=== PATIENT | female | born 1995 | race Caucasian/White ===

== ENCOUNTER → 2023-10-22 10:22 | Outpatient (REF) | payer OTHER, SELFPAY | LOC: RAD 10:22 | PROVIDERS: ATTENDING PHYSICIAN Obstetrics & Gynecology; FAMILY PHYSICIAN Family Medicine | DX: O26.851 Spotting complicating pregnancy, first trimester (principal) | CPT/HCPCS: 76801; 76817 ==

== ENCOUNTER → 2023-11-29 06:49 | Outpatient (REF) | payer OTHER, SELFPAY | LOC: PNTC 06:49 | PROVIDERS: ATTENDING PHYSICIAN Obstetrics & Gynecology | DX: O99.210 Obesity complicating pregnancy, unspecified trimester (principal); Z36.0 Encounter for antenatal screening for chromosomal anomalies; Z36.82 Encounter for antenatal screening for nuchal translucency | CPT/HCPCS: 76801; 76813 ==

== ENCOUNTER → 2024-01-01 16:34 | Outpatient (REF) | payer OTHER, SELFPAY | LOC: PNTC 16:34 | PROVIDERS: ATTENDING PHYSICIAN Obstetrics & Gynecology | DX: O99.210 Obesity complicating pregnancy, unspecified trimester (principal) | CPT/HCPCS: 76805 ==

== ENCOUNTER 2024-01-21 11:33 | Emergency (ER) | payer OTHER, SELFPAY ==
[2024-01-21 11:56] VITALS: BMI 37.4
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
[2024-01-21 12:17] LABS: Hematocrit 32.4 % (37.0-47.0); Hemoglobin 11.4 g/dL (12.0-16.0)
[2024-01-21 12:51] VITALS: BP 116/69
== END 2024-01-21 13:12 | disposition home or self-care (01) ==
LOC: EMR 11:33
PROVIDERS: EMERGENCY PHYSICIAN Emergency Medicine; FAMILY PHYSICIAN Family Medicine
DX: S46.912A Strain of unspecified muscle, fascia and tendon at shoulder and upper arm level, left arm, initial encounter (principal); S70.02XA Contusion of left hip, initial encounter; S80.12XA Contusion of left lower leg, initial encounter; V86.69XA Passenger of other special all-terrain or other off-road motor vehicle injured in nontraffic accident, initial encounter; Z33.1 Pregnant state, incidental
CPT/HCPCS: 99283; 85014; 85018

== ENCOUNTER → 2024-01-24 15:59 | Outpatient (REF) | payer OTHER, SELFPAY | LOC: PNTC 15:59 | PROVIDERS: ATTENDING PHYSICIAN Obstetrics & Gynecology | DX: O99.210 Obesity complicating pregnancy, unspecified trimester (principal) | CPT/HCPCS: 76811 ==

== ENCOUNTER → 2024-03-06 16:27 | Outpatient (REF) | payer OTHER, SELFPAY | LOC: PNTC 16:27 | PROVIDERS: ATTENDING PHYSICIAN Obstetrics & Gynecology | DX: O99.210 Obesity complicating pregnancy, unspecified trimester (principal) | CPT/HCPCS: 76816 ==

== ENCOUNTER → 2024-03-12 16:56 | Outpatient (REF) | payer OTHER, SELFPAY | LOC: PNTC 16:56 | PROVIDERS: ATTENDING PHYSICIAN Student in an Organized Health Care Education/Training Program | DX: O24.419 Gestational diabetes mellitus in pregnancy, unspecified control (principal) | CPT/HCPCS: 76815 ==

== ENCOUNTER → 2024-03-14 13:14 | Outpatient (REF) | payer OTHER, SELFPAY ==
--- NOTE | 2024-03-14 13:41 | PN.DIAED06 ---
Meal Plan - Gestational
- Breakfast
Gestational Diabetes Meal Plan Name: 1800 calories
Breakfast - Total Carbohydrate (grams): 30
Breakfast - Starch Carbohydrate: 1
Breakfast - Fruit Carbohydrate: 0
Breakfast - Milk Carbohydrate: 1
Breakfast - Nonstarchy Vegetables: Yes
Breakfast - Meat/Protein: 1
Breakfast - Fat: 2
- Morning Snack
Morning Snack - Total Carbohydrate (grams): 30
Morning Snack - Starch Carbohydrate: 1
Morning Snack - Fruit Carbohydrate: 0
Morning Snack - Milk Carbohydrate: 1
Morning Snack - Nonstarchy Vegetables: Yes
Morning Snack - Meat/Protein: 0.5
Morning Snack - Fat: 0
- Lunch
Lunch - Total Carbohydrate (grams): 45
Lunch - Starch Carbohydrate: 2
Lunch - Fruit Carbohydrate: 1
Lunch - Milk Carbohydrate: 0
Lunch - Nonstarchy Vegetables: Yes
Lunch - Meat/Protein: 2
Lunch - Fat: 1
- Afternoon Snack
Afternoon Snack - Total Carbohydrate (grams): 30
Afternoon Snack - Starch Carbohydrate: 1
Afternoon Snack - Fruit Carbohydrate: 1
Afternoon Snack - Milk Carbohydrate: 0
Afternoon Snack - Nonstarchy Vegetables: Yes
Afternoon Snack - Meat/Protein: 1
Afternoon Snack - Fat: 0
- Dinner
Dinner - Total Carbohydrate (grams): 45
Dinner - Starch Carbohydrate: 2
Dinner - Fruit Carbohydrate: 0
Dinner - Milk Carbohydrate: 1
Dinner - Nonstarchy Vegetables: Yes
Dinner - Meat/Protein: 2
Dinner - Fat: 2
- Evening Snack
Evening Snack - Total Carbohydrate (grams): 30
Evening Snack - Starch Carbohydrate: 1
Evening Snack - Fruit Carbohydrate: 0
Evening Snack - Milk Carbohydrate: 1
Evening Snack - Nonstarchy Vegetables: Yes
Evening Snack - Meat/Protein: 1
Evening Snack - Fat: 1
--- NOTE | 2024-03-14 16:49 | PN.DE ---
Diabetes Education
- -
Met with Ms. Wolf today, currently at 27 weeks of gestation, here today for medical nutrition therapy.
Explained glucose metabolism in body and what occurs during to cause increase blood sugar. Discussed importance of keeping BS well controlled to avoid complications to the baby during and after (macrosomia, hypoglycemia).
Explained to Oanh that she is at increased risk of developing T2DM in the future.
Provided with and instructions given on Contour Next glucometer, instructions on proper testing technique, testing sites and testing pattern given. She is aware to test FBS and 2 hr pp each meal. Expected results for FBS <95 mg/dl and 2 hr pp <120
mg/dl. She is aware if testing 1 hr pp, result should be <140 mg/dl. Noted for blood sugar of 92, 2 hrs after lunch. Log sheet provided for her to record results, she will send a 4 day meal log with all her FBG and 2hr Post prandial glucose numbers
to this office for review.
In addition, she will send all her glucose readings to Tanya at [facility] every Sunday.
Discussed macronutrients, provided with 1800 zackery GDM meal plan, she has a good understanding of healthy nutrition but states that she struggles with sweets and baked good as she loves to bake with her Da. She also states she does not eat enough
protein and thinks she may be under eating, although she is 215 lbs at 5'3'.
Oanh has been educated on how to read a nutritional fact label and look at total CHO in relation to serving size. No fruit or fruit juice until noontime. Provided with handout on snacks as well as 'Choose Your Foods' booklet. Encouraged exercise
and increased physical activity during and encouraged her to reach out should she have any questions or require insulin as her progresses and she verbalized understanding.
== END ==
LOC: DES 13:14
PROVIDERS: ATTENDING PHYSICIAN Student in an Organized Health Care Education/Training Program
DX: O24.419 Gestational diabetes mellitus in pregnancy, unspecified control (principal)
CPT/HCPCS: 99078

== ENCOUNTER → 2024-04-17 16:25 | Outpatient (REF) | payer OTHER, SELFPAY | LOC: PNTC 16:25 | PROVIDERS: ATTENDING PHYSICIAN Obstetrics & Gynecology | DX: O99.210 Obesity complicating pregnancy, unspecified trimester (principal) | CPT/HCPCS: 76816 ==

== ENCOUNTER → 2024-04-28 11:26 | Outpatient (REF) | payer OTHER, SELFPAY | LOC: PNTC 11:26 | PROVIDERS: ATTENDING PHYSICIAN Obstetrics & Gynecology | DX: O24.419 Gestational diabetes mellitus in pregnancy, unspecified control (principal) | CPT/HCPCS: 59025; 76815 ==

== ENCOUNTER → 2024-05-05 16:59 | Outpatient (REF) | payer OTHER, SELFPAY | LOC: PNTC 16:59 | PROVIDERS: ATTENDING PHYSICIAN Obstetrics & Gynecology | DX: O24.410 Gestational diabetes mellitus in pregnancy, diet controlled (principal) | CPT/HCPCS: 59025; 76815 ==

== ENCOUNTER → 2024-05-12 16:56 | Outpatient (REF) | payer OTHER, SELFPAY | LOC: PNTC 16:56 | PROVIDERS: ATTENDING PHYSICIAN Obstetrics & Gynecology | DX: O99.210 Obesity complicating pregnancy, unspecified trimester (principal); O24.419 Gestational diabetes mellitus in pregnancy, unspecified control | CPT/HCPCS: 59025 ==

== ENCOUNTER → 2024-05-19 11:34 | Outpatient (REF) | payer OTHER, SELFPAY | LOC: PNTC 11:34 | PROVIDERS: ATTENDING PHYSICIAN Obstetrics & Gynecology | DX: O24.419 Gestational diabetes mellitus in pregnancy, unspecified control (principal) | CPT/HCPCS: 59025; 76815 ==

== ENCOUNTER 2024-05-28 12:34 | Emergency (ER) | payer OTHER, SELFPAY ==
[2024-05-28 12:51] VITALS: BP 123/86
[2024-05-28 13:18] LABS: % Basophils 0.3 % (0-2); % Eosinophils 0.2 % (0-6); % Immature Granulocytes 1.1 % (0-0.5); % Lymphocytes 15.8 % (20.5-51.1); % Monocytes 5.4 % (1.7-9.3); % Neutrophils 77.2 % (42.2-75.2); Absolute Immature Granulocytes 0.1 10^3/uL (0-0.05); Absolute Lymphocytes 1.6 10^3/uL (1.2-3.4); Absolute Monocytes 0.5 10^3/uL (0.1-0.6); Absolute Neutrophils 7.7 10^3/uL (1.4-6.5); Hematocrit 35.6 % (37.0-47.0); Mean Corp Hgb Conc. 33.7 g/dL (33.0-37.0); Mean Corpuscular Hgb 26.7 pg (27.0-31.0); Mean Corpuscular Volume 79.3 fL (81.0-99.0); Nucleated Red Blood Cells % 0 %; Platelet Count 186 10^3/uL (130-400); Red Blood Cell Count 4.49 10^6/uL (4.20-5.40); Red Cell Dist. Width 13.8 % (11.5-14.5); White Blood Cell Count 9.9 10^3/uL (4.8-10.8)
[2024-05-28 13:39] LABS: ALT (SGPT) 14 U/L (0-35); AST (SGOT) 22 U/L (14-36); Albumin 3.7 g/dl (3.5-5.0); Alkaline Phosphatase 166 U/L (38-126); Blood Urea Nitrogen 7 mg/dl (7-17); Calcium 9.2 mg/dl (8.4-10.2); Carbon Dioxide 21 mmol/L (22-30); Chloride 103 mmol/L (98-107); Glucose 104 mg/dl (70-99); Potassium 4.1 mmol/L (3.5-5.1); Sodium 133 mmol/L (135-145); Total Bilirubin 0.2 mg/dl (0.2-1.3); Total Protein 6.2 g/dl (6.3-8.2); eGFR > 60.00
[2024-05-28 15:22] VITALS: BP 117/96
[2024-05-28 19:51] VITALS: BP 143/66
--- NOTE | 2024-05-28 20:12 | ED.GENMED ---
History of Present Illness
<ÓSCAR Junior - Last Filed: 05/28/24 20:56>
General
Chief Complaint: Breathing Problem
Source: patient
Time Seen by Provider: 05/28/24 19:49
History of Present Illness
History of Present Illness:
This is a 29 y/o female with gestational diabetes who is 38 wk () and presents to the emergency department with SOB and palpitations. She called her OB office this morning (Dr. Mojica) and spoke with a nurse who recommended she went to
the ER for evaluation. She admits to 1 episode of SOB with palpitations that lasted a few seconds this morning while at work sitting at her desk. She describes the SOB as 'feels like I'm not getting a full deep breath.' She admits to occasional
episodes of 'heart flutter' while lying on her left side at night since being . She admits to heart palpitations since childhood that were evaluated by a Bathhouse Attendant years ago and no further intervention was needed. Denies fever/chills,
cough, chest pain, vomiting, diarrhea, LE edema, headache, vaginal bleeding/discharge, dizziness.
Past History
<ÓSCAR Junior - Last Filed: 05/28/24 20:56>
Past History
ED Past Medical History: None
Social History
Tobacco: Non-smoker
Alcohol: None
Drug: None
Personal: Single
Living: with family
Phy Exam
<ÓSCAR Junior - Last Filed: 05/28/24 20:56>
Physical Exam
Physical Exam:
Skin: [place], soft, well-hydrated, turgor with instant recoil
Resp: muscle and respiratory effort symmetric without use of accessory muscles; vesicular breath sounds without adventitious sounds; even, quiet breathing
Heart: No lifts or heaves visible; tachycardic rate and regular rhythm; No murmurs, rubs or gallops
PV: radial, dorsalis pedis and posterior tibial pulses all intact bilaterally; no edema or varicosities; no tenderness to palpation of LE
Neuro: AAO x3
General Physical Exam
General Presentation: well appearing
Course
<Indy Márquez, [facility] - Last Filed: 05/28/24 20:56>
Orders/Labs/Results
Orders:
Orders
05/28/24 12:35
Electrocardiogram (*1) Urgent
Reason for Study: Palpitations
EKG- Treatment ONCE
05/28/24 12:50
CMP [Comprehensive Metabolic Panel] Urgent
Complete Blood Count/With Diff Urgent
Abnormal Lab Results
05/28/24
12:50
Hct 35.6 L %
(37.0-47.0)
MCV 79.3 L fL
(81.0-99.0)
MCH 26.7 L pg
(27.0-31.0)
MPV 11.0 H fL
(7.4-10.4)
Abs Immat Gran (auto) 0.1 H 10^3/uL
(0-0.05)
Absolute Neuts (auto) 7.7 H 10^3/uL
(1.4-6.5)
Immature Gran % 1.1 H %
(0-0.5)
Neutrophils % 77.2 H %
(42.2-75.2)
Lymphocytes % 15.8 L %
(20.5-51.1)
Sodium 133 L mmol/L
(135-145)
Carbon Dioxide 21 L mmol/L
(22-30)
Glucose 104 H mg/dl
(70-99)
Alkaline Phosphatase 166 H U/L
(38-126)
Total Protein 6.2 L g/dl
(6.3-8.2)
05/28/24 12:50
05/28/24 12:50
Vital Signs
Initial and Last Documented VS:
Initial Vital Signs
Temp Pulse Resp BP Pulse Ox
98.5 F 99 18 123/86 98
05/28/24 12:51 05/28/24 12:51 05/28/24 12:51 05/28/24 12:51 05/28/24 12:51
Last Documented Vital Signs
Temp Pulse Resp BP Pulse Ox
98.5 F 99 16 143/66 99
05/28/24 12:51 05/28/24 19:51 05/28/24 19:51 05/28/24 19:51 05/28/24 19:51
<Tyrone Painter, DO - Last Filed: 05/28/24 23:06>
Orders/Labs/Results
Orders:
Orders
05/28/24 12:35
Electrocardiogram (*1) Urgent
Reason for Study: Palpitations
EKG- Treatment ONCE
05/28/24 12:50
CMP [Comprehensive Metabolic Panel] Urgent
Complete Blood Count/With Diff Urgent
Abnormal Lab Results
05/28/24
12:50
Hct 35.6 L %
(37.0-47.0)
MCV 79.3 L fL
(81.0-99.0)
MCH 26.7 L pg
(27.0-31.0)
MPV 11.0 H fL
(7.4-10.4)
Abs Immat Gran (auto) 0.1 H 10^3/uL
(0-0.05)
Absolute Neuts (auto) 7.7 H 10^3/uL
(1.4-6.5)
Immature Gran % 1.1 H %
(0-0.5)
Neutrophils % 77.2 H %
(42.2-75.2)
Lymphocytes % 15.8 L %
(20.5-51.1)
Sodium 133 L mmol/L
(135-145)
Carbon Dioxide 21 L mmol/L
(22-30)
Glucose 104 H mg/dl
(70-99)
Alkaline Phosphatase 166 H U/L
(38-126)
Total Protein 6.2 L g/dl
(6.3-8.2)
05/28/24 12:50
05/28/24 12:50
Vital Signs
Initial and Last Documented VS:
Initial Vital Signs
Temp Pulse Resp BP Pulse Ox
98.5 F 99 18 123/86 98
05/28/24 12:51 05/28/24 12:51 05/28/24 12:51 05/28/24 12:51 05/28/24 12:51
Last Documented Vital Signs
Temp Pulse Resp BP Pulse Ox
98.5 F 99 16 143/66 99
05/28/24 12:51 05/28/24 19:51 05/28/24 19:51 05/28/24 19:51 05/28/24 19:51
<ÓSCAR Junior - Last Filed: 05/28/24 20:56>
MDM/Problems Addressed
MDM/Problems Addressed:
This is a 29 y/o female who is 38 wk and reports to the ER with SOB and palpitation. Pt had an episode of SOB and palpitations this morning that lasted seconds and has not reoccurred since. Sinus tachycardia on EKG. Blood pressure
143/66mmHg. She appears well on exam and denies any vaginal bleeding/discharge, cough, hemoptysis, chest pain. Will reach out to OB to determine their preference in plan.
<ÓSCAR Junior - Last Filed: 05/28/24 20:56>
*Critical Care Note
Total Time (30-74mins, 75-104mins- exclusive of procedures): Not Applicable
<Tyrone Painter DO - Last Filed: 05/28/24 23:06>
*Pulse Oximetry
Patient hypoxic: no
*EKG
Interpreted by ED Provider?: Yes
EKG Intrepretation Date: 05/28/24
EKG Intrepretation Time: 12:40
Interpretation: abnormal
Comparison EKG: no comparison EKG present
Heart Rate: 102
Rate: tachycardiac
Rhythm: sinus tachycardia
[place]: normal axis
Interval: normal interval
QRS Pattern: normal QRS
Ischemia: no ischemia
*Steam Power Plant Operator Interpretation
Rate: Steam Power Plant Operator- N/A
<Tyrone Painter DO - Last Filed: 05/28/24 23:06>
Patient Management
Social determinants of health affecting care: Living situation and Strong social support
Discussion with other providers: Metal Template Maker (OB-Dr. Reid)
Escalation/DeEscalation of care consider admission/obs:
transfer to L and D
ED Attending Note
<ÓSCAR Junior - Last Filed: 05/28/24 20:56>
-
Portions of this chart may have been created with voice recognition software.� Occasional wrong word or��sound alike� substitutions may have occurred due to the inherent limitations of voice recognition software.
<Tyrone Painter DO - Last Filed: 05/28/24 23:06>
ED Attending Note
Patient seen and examined by attending physician: Yes
I performed a history and physical exam of patient and discussed management with resident, I reviewed resident's note and agree with documented findings and plan of care.: Yes
ED Attending Note:
I reviewed and agree with history and treatment plan by Indy Márquez. My exam revealed no acute distress, clear lungs, gravid uterus. No shortness of breath or chest pain at this time. Doubt PE. Given elevated blood pressure and discussed
with Dr. Reid, will transfer to labor and delivery.
Discharge Plan
Departure
Patient Disposition: LDRP
Date of Disposition: 05/28/24
Time of Disposition: 20:52
Admit to doctor: [facility]
Presentation/result/management discussed w/ accepting MD/DO: OB
Patient with high blood pressure during this ER visit?: Yes
Condition: Good
Discharge Problem:
Palpitations, related condition in third trimester, Hypertension affecting in third trimester
Prescriptions:
No Action
(DME) Contour Next Test Strips Strip
Qty: 130 0RF
Rx Instructions:
Pt Testing 4 times a day
(DME) lancets [Microlet Lancet] Misc
Qty: 130 0RF
Rx Instructions:
Pt testing 4 times a day
Vitamin Tablet
1 tab PO DAILY
aspirin 81 mg Capsule
81 mg PO DAILY
Referrals:
Dakota Bonilla MD [Family Provider] -
Interventions
Interventions:
*Risk Screen - Suicide Last Done: 05/28/24 12:51
*General Assessment Last Done: 05/28/24 12:51
*Neglect/Abuse Screening Last Done: 05/28/24 12:51
*Nursing Disposition Last Done: 05/28/24 21:02
ED- Cardiac Assessment Last Done: 05/28/24 21:02
ED- Pulmonary Assessment Last Done: 05/28/24 21:02
Discharge Date and Time
Discharge Date/Time: 05/28/24 21:03
Print Language: LATVIAN
== END 2024-05-28 21:03 | disposition home or self-care (01) ==
LOC: EMR 12:34
PROVIDERS: Emergency Medicine; EMERGENCY PHYSICIAN Emergency Medicine; FAMILY PHYSICIAN Family Medicine
DX: O26.893 Other specified pregnancy related conditions, third trimester (principal); R00.2 Palpitations; O10.913 Unspecified pre-existing hypertension complicating pregnancy, third trimester; O24.419 Gestational diabetes mellitus in pregnancy, unspecified control; Z3A.38 38 weeks gestation of pregnancy
CPT/HCPCS: 99284; 80053; 85025; 93005

== ENCOUNTER 2024-05-28 21:11 | Observation (INO) | payer OTHER, SELFPAY ==
[2024-05-28 21:40] VITALS: BP 119/71; BMI 35.4
[2024-05-28 22:50] LABS: Protein/creatinine Ratio 0.1; Urine Protein 7 mg/dl
== END 2024-05-28 23:08 | disposition home or self-care (01) ==
LOC: LDRP 21:11
PROVIDERS: ADMITTING PHYSICIAN Obstetrics & Gynecology; FAMILY PHYSICIAN Family Medicine
DX: O26.893 Other specified pregnancy related conditions, third trimester (principal); R00.2 Palpitations; R06.02 Shortness of breath; O24.410 Gestational diabetes mellitus in pregnancy, diet controlled; Z3A.38 38 weeks gestation of pregnancy; O99.343 Other mental disorders complicating pregnancy, third trimester; F41.9 Anxiety disorder, unspecified; R03.0 Elevated blood-pressure reading, without diagnosis of hypertension
CPT/HCPCS: 59025; 82570; 84156; G0378

== ENCOUNTER → 2024-05-29 16:30 | Outpatient (REF) | payer OTHER, SELFPAY | LOC: PNTC 16:30 | PROVIDERS: ATTENDING PHYSICIAN Obstetrics & Gynecology | DX: O24.419 Gestational diabetes mellitus in pregnancy, unspecified control (principal) | CPT/HCPCS: 59025 ==

== ENCOUNTER 2024-05-30 17:20 | Inpatient (IN) | payer OTHER, SELFPAY ==
[2024-05-30 17:27] VITALS: BMI 31.9
[2024-05-30 18:19] LABS: % Basophils 0.2 % (0-2); % Eosinophils 0.1 % (0-6); % Lymphocytes 16.3 % (20.5-51.1); % Monocytes 5.4 % (1.7-9.3); Absolute Immature Granulocytes 0.1 10^3/uL (0-0.05); Absolute Lymphocytes 1.7 10^3/uL (1.2-3.4); Absolute Monocytes 0.6 10^3/uL (0.1-0.6); Absolute Neutrophils 7.9 10^3/uL (1.4-6.5); Hematocrit 36.8 % (37.0-47.0); Hemoglobin 12.7 g/dL (12.0-16.0); Mean Corp Hgb Conc. 34.5 g/dL (33.0-37.0); Mean Corpuscular Hgb 27.1 pg (27.0-31.0); Mean Corpuscular Volume 78.5 fL (81.0-99.0); Mean Platelet Volume 11.1 fL (7.4-10.4); Nucleated Red Blood Cells % 0 %; Platelet Count 189 10^3/uL (130-400); Red Blood Cell Count 4.69 10^6/uL (4.20-5.40); Red Cell Dist. Width 13.8 % (11.5-14.5); White Blood Cell Count 10.2 10^3/uL (4.8-10.8)
[2024-05-30 18:27] LABS: ALT (SGPT) 14 U/L (0-35); AST (SGOT) 24 U/L (14-36); Albumin 4.1 g/dl (3.5-5.0); Alkaline Phosphatase 187 U/L (38-126); Blood Urea Nitrogen 7 mg/dl (7-17); Calcium 9.6 mg/dl (8.4-10.2); Carbon Dioxide 19 mmol/L (22-30); Chloride 102 mmol/L (98-107); Estimated Creatinine Clearance > 125 ml/min; Glucose 84 mg/dl (70-99); Potassium 3.9 mmol/L (3.5-5.1); Sodium 133 mmol/L (135-145); Total Bilirubin 0.6 mg/dl (0.2-1.3); Total Protein 6.6 g/dl (6.3-8.2); eGFR > 60.00
[2024-05-30 18:28] LABS: Protein/creatinine Ratio 0.3; Urine Protein 14 mg/dl
[2024-05-30] MEDS: TYLENOL 1000 MG PO (19:27)
[2024-05-30] MEDS: CYTOTEC 25 MICROGRAM VAG (19:55)
[2024-05-30 21:11] LABS: Glucose - Point of Care 84 mg/dl (70-99)
[2024-05-31] MEDS: CYTOTEC 50 MICROGRAM PO ×2 (00:05→04:23)
[2024-05-31] MEDS: LR 1000 IV ×2 (00:45→16:04)
[2024-05-31] MEDS: FLUSH (NSS) 1 FLUSH IV (00:45)
[2024-05-31 06:35] LABS: Glucose - Point of Care 76 mg/dl (70-99)
[2024-05-31] MEDS: PRENATAL PLUS 1 TABLET PO (10:00)
[2024-05-31] MEDS: CYTOTEC PO ×4 (10:00→23:21)
[2024-05-31 10:04] LABS: Glucose - Point of Care 71 mg/dl (70-99)
[2024-05-31] MEDS: PITOCIN 30 UNITS/NSS 500 ML IV (12:50)
[2024-05-31 16:10] LABS: Glucose - Point of Care 81 mg/dl (70-99)
[2024-05-31 21:29] LABS: Glucose - Point of Care 89 mg/dl (70-99)
[2024-06-01 06:25] LABS: Glucose - Point of Care 75 mg/dl (70-99)
[2024-06-01] MEDS: LR 1000 IV (06:28)
[2024-06-01] MEDS: BICITRA 30 ML PO (08:32)
[2024-06-01] MEDS: ANCEF 10 IV (08:32)
[2024-06-01] MEDS: TYLENOL 1000 MG PO (08:32)
[2024-06-01] MEDS: PRENATAL PLUS PO (10:43)
[2024-06-01] MEDS: TORADOL 15 MG IV ×2 (15:32→21:54)
[2024-06-01] MEDS: REGLAN 10 MG IV (15:44)
[2024-06-02] MEDS: TORADOL 15 MG IV ×2 (03:48→09:24)
[2024-06-02 04:48] LABS: Hematocrit 37.7 % (37.0-47.0); Hemoglobin 12.9 g/dL (12.0-16.0); Mean Corp Hgb Conc. 34.2 g/dL (33.0-37.0); Mean Platelet Volume 11.5 fL (7.4-10.4); Platelet Count 224 10^3/uL (130-400); Red Blood Cell Count 4.77 10^6/uL (4.20-5.40); Red Cell Dist. Width 13.8 % (11.5-14.5); White Blood Cell Count 19.5 10^3/uL (4.8-10.8)
[2024-06-02] MEDS: SENOKOT-S 1 TABLET PO (09:24)
[2024-06-02] MEDS: PRENATAL PLUS PO (09:24)
[2024-06-02] MEDS: TYLENOL 650 MG PO ×3 (14:26→22:28)
--- NOTE | 2024-06-02 15:51 | W.PN.ANS.POP ---
Anesthesia Post Operative
- Anesthesia Post Op Note
Vital Signs Stable-See Nursing Note: Yes
Airway Patent: Yes
Adequate Pain Control: Yes
Change in Mental Status: No
Current Postoperative Nausea & Vomiting: No
Anesthesia Complications: No
General Anesthetic Recall: No
Unplanned Admission: No
Post Op Hydration Adequate: Yes
- -
Pt awake and alert, doing well visiting with family.
[2024-06-02] MEDS: MOTRIN 600 MG PO ×2 (16:15→22:27)
[2024-06-03] MEDS: MOTRIN 600 MG PO ×2 (04:30→11:19)
[2024-06-03] MEDS: TYLENOL 650 MG PO ×2 (04:30→11:19)
[2024-06-03] MEDS: SENOKOT-S 1 TABLET PO (07:37)
[2024-06-03] MEDS: PRENATAL PLUS PO (07:39)
[2024-06-03 11:35] LABS: Syphilis/T. pallidum Ab Reflex Negative (Negative)
--- NOTE | 2024-06-03 14:52 | W.DS.TRANS ---
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
-
Discharge Instructions:
Discharge Diagnosis/Procedures [id number]; preeclampsia without
severe features, cervical ripening, induction of
labor, elective primary low transverse csection
Diet Regular
Activity No strenuous activity
Driving Restrictions No driving for 2 weeks
Bathing Restrictions OK to Shower
Instructions:
Stand-Alone Forms: LDRP Delivery
LDRP Hypertensive Disorders
Changes to Home Medications: No
Discharge Medications:
DC Medications w/original date entered in Diversion
prenat.vits,zackery,arw-grjy-pfghk 1 tab PO DAILY 05/28/24
acetaminophen 325 mg tablet 650 mg (2 x 325 mg) PO Q4HPRN PRN mild pain #0 tabs 06/03/24
ibuprofen 600 mg tablet 600 mg PO Q6HPRN PRN cramps #0 tabs 06/03/24
Home Medication Changes
Pending Results: Yes
Additional Pending Results:
placental pathology
Total time spent discharging patient (in min): 30
== END 2024-06-03 15:43 | disposition home or self-care (01) | DRG 787 ==
LOC: LDRP 17:20
PROVIDERS: Obstetrics & Gynecology; ADMITTING PHYSICIAN Obstetrics & Gynecology
PROC: 3E0P7VZ Introduction of Hormone into Female Reproductive, Via Natural or Artificial Opening (ICD-10-PCS; 2024-05-30)
PROC: 4A1HXCZ Monitoring of Products of Conception, Cardiac Rate, External Approach (ICD-10-PCS; 2024-05-30)
PROC: 10D00Z1 Extraction of Products of Conception, Low, Open Approach (ICD-10-PCS; 2024-06-01)
DX: O14.04 Mild to moderate pre-eclampsia, complicating childbirth (principal); E22.1 Hyperprolactinemia; O24.420 Gestational diabetes mellitus in childbirth, diet controlled; O99.214 Obesity complicating childbirth; O99.284 Endocrine, nutritional and metabolic diseases complicating childbirth; O69.81X0 Labor and delivery complicated by cord around neck, without compression, not applicable or unspecified; Z37.0 Single live birth; Z3A.38 38 weeks gestation of pregnancy; O99.892 Other specified diseases and conditions complicating childbirth; D25.2 Subserosal leiomyoma of uterus
CPT/HCPCS: 88307; 36415; 80053; 82570; 82962; 84156; 85025; 85027; 86780; 86850; 86900; 86901

== ENCOUNTER 2024-08-06 04:57 | Emergency (ER) | payer OTHER, SELFPAY ==
[2024-08-06 05:03] VITALS: BP 155/92
--- NOTE | 2024-08-06 05:16 | ED.GENMED ---
History of Present Illness
General
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
Source: patient
Exam Limitations: none
Time Seen by Provider: 08/06/24 05:16
Nursing documentation reviewed up to this point in time: agreed with
History of Present Illness
History of Present Illness:
This is a 29-year-old G1, P1 female who presents emergency department today with concerns of vaginal bleeding for the past 5 weeks. Patient reports that she had her first child via at [facility] reports that after the operation,
she did not have much bleeding her bleeding was controlled. He weeks later, she started develop passage of large clots and some pelvic cramping. She went to the ER with the symptoms however the wait time was too long so then she went home and the
bleeding started to get better on its own. Then a week after that, the bleeding restarted and she started to have heavy bleeding again was bleeding through more than 1 pad per hour. She saw her INTERNET RESEARCHER for this who started her on
control pills to help with the bleeding. This seemed to help however the bleeding restarted again this past week, she saw Dr. Alonso in office yesterday who was concerned about possible retained placental versus uterine polyp versus fibroid and
order ultrasound for patient however the ultrasound would be a few weeks away. Patient denies any lightheadedness, dizziness, nausea, vomiting. She does note some mild right sided pelvic pain. She denies any sick contacts, denies any diarrhea or
constipation.
Past History
Past History
ED Past Medical History: None
Social History
Tobacco: Non-smoker
Alcohol: None
Drug: None
Personal: Single
Living: with family
Review of Systems
Review of Systems
All Other Systems: ROS reviewed and negative except as documented in HPI and ROS
Phy Exam
Physical Exam
Physical Exam:
General: Patient is well appearing and in no acute distress; non-toxic
Skin: Warm and dry, no rashes or lesions
Head: Normocephalic, atraumatic
Eyes: Sclera non-icteric. EOMs intact.
Cardiac: Regular rate and rhythm, no murmurs
Peripheral Vascular: No lower extremity swelling or edema
Pulm: Normal respiratory effort, no wheezes, rales, or rhonchi
Abdomen: No abdominal tenderness to palpation
Genitourinary: incision site intact with no surrounding erythema or induration. Mild tenderness to palpation of the right adenexal area.
Neuro: CN II-XII intact, no focal neurologic deficits.
Psychiatric: Appropriate mood and affect.
Course
Orders/Labs/Results
Orders:
Orders
08/06/24 05:32
Test Result ONCE
US Transvaginal [US Pelvis W Transvag Combined] Urgent
Comment:
Reason For Exam: right pelvic pain, bleeding
08/06/24 05:37
Type+Screen Urgent
Complete Blood Count/With Diff Urgent
Comprehensive Metabolic Panel Urgent
HCG, Serum Qualitative Screen Urgent
Abnormal Lab Results
08/06/24
05:37
MCV 79.0 L fL
(81.0-99.0)
MCH 26.2 L pg
(27.0-31.0)
Chloride 109 H mmol/L
(98-107)
Glucose 100 H mg/dl
(70-99)
08/06/24 05:37
08/06/24 05:37
Vital Signs
Initial and Last Documented VS:
Initial Vital Signs
Temp Pulse Resp BP Pulse Ox
97.8 F 100 22 155/92 98
08/06/24 05:03 08/06/24 05:03 08/06/24 05:03 08/06/24 05:03 08/06/24 05:03
Last Documented Vital Signs
Temp Pulse Resp BP Pulse Ox
97.8 F 90 23 126/80 97
08/06/24 05:03 08/06/24 07:45 08/06/24 07:45 08/06/24 07:00 08/06/24 07:45
MDM/Problems Addressed
Differential Diagnosis Includes:
ddx include retained placental, menorrhagia, ovarian cyst, uterine polyp, uterine fibroid
MDM/Problems Addressed:
This is a 29-year-old G1, P1 female who presents emergency department today with concerns of vaginal bleeding for the past 5 weeks. The bleeding got heavier this past week. She saw her INTERNET RESEARCHER yesterday for this problem who ordered outpatient
ultrasound. Today, patient feels well denies fevers or chills, denies dizziness or lightheadedness but does note that the bleeding has been heavier over the past few hours. The last time she changed a tampon was around 4:30 AM. Will obtain
ultrasound, patient is O+, H&H stable
US negative for mass/polyp/ovarian torsion. On reassessment patient feels comfortable, is well appearing pain resolved without intervention. Discussed case with OBGYN, in light of pt being hemodynamically stable and bleeding controlled, will hold
off lysteda at this time. Patient will continue her OCPs. Stable for outpt follow up.
Chronic conditions affecting care:
n/a
*Pulse Oximetry
Patient hypoxic: no
*Critical Care Note
Total Time (30-74mins, 75-104mins- exclusive of procedures): Not Applicable
Data Reviewed
Review of Other/Old Records Reveals: Records (Reviewed discharge summary from 06/05/2024 patient seen for term with delivery via see section, she did have preeclampsia without severe features)
Source: patient
ED Attending Note
-
Portions of this chart may have been created with voice recognition software.� Occasional wrong word or��sound alike� substitutions may have occurred due to the inherent limitations of voice recognition software.
Discharge Plan
Departure
Patient Disposition: Home (Routine Discharge)
Date of Disposition: 08/06/24
Time of Disposition: 07:46
Patient with high blood pressure during this ER visit?: Yes
Condition: Good
Discharge Problem:
Abnormal uterine bleeding
Instructions: Heavy Periods (DC), BLOOD PRESSURE
Prescriptions:
No Action
acetaminophen 325 mg Tablet
650 mg PO Q4HPRN PRN (Reason: mild pain) Qty: 0 0RF
ibuprofen 600 mg Tablet
600 mg PO Q6HPRN PRN (Reason: cramps) Qty: 0 0RF
norethindrone-e.estradiol-iron [05/19 (28)] 1 mg-20 mcg (21)/75 mg (7) Tablet
1 tab PO DAILY
Referrals:
Dakota Bonilla MD [Family Provider] -
Activity Restrictions/Additional Instructions:
Your hemoglobin is within normal limits.
You can restart your next control pill pack.
Please call your INTERNET RESEARCHER office later today to schedule a follow-up appointment.
PLEASE RETURN EMERGENCY DEPARTMENT TO DEVELOP ACUTE WORSENING OR SYMPTOMS, INTRACTABLE NAUSEA OR VOMITING, FEVERS OR CHILLS, AND ACUTE WORSENING PAIN, OR ANY OTHER SIGNS OR SYMPTOMS WORRISOME TO YOU.
Interventions
Interventions:
*Risk Screen - Suicide Last Done: 08/06/24 05:03
*General Assessment Last Done: 08/06/24 05:26
*Neglect/Abuse Screening Last Done: 08/06/24 05:03
*ED- Fall Risk Assessment Last Done: 08/06/24 05:26
*ED COVID-19 Vaccine History Last Done: 08/06/24 05:26
*Nursing Disposition Last Done: 08/06/24 07:53
ED-Female Genitourinary Assessment Last Done: 08/06/24 05:15
Discharge Date and Time
Discharge Date/Time: 08/06/24 08:10
Print Language: TUNISIAN
[2024-08-06 05:26] VITALS: BMI 36.6
[2024-08-06 05:44] VITALS: BP 129/76
[2024-08-06 05:52] LABS: % Basophils 0.6 % (0-2); % Immature Granulocytes 0.4 % (0-0.5); % Lymphocytes 30.4 % (20.5-51.1); % Monocytes 6.7 % (1.7-9.3); % Neutrophils 60.9 % (42.2-75.2); Absolute Eosinophils 0.1 10^3/uL (0-0.7); Absolute Lymphocytes 2.1 10^3/uL (1.2-3.4); Absolute Monocytes 0.5 10^3/uL (0.1-0.6); Absolute Neutrophils 4.2 10^3/uL (1.4-6.5); Hemoglobin 12.6 g/dL (12.0-16.0); Mean Corp Hgb Conc. 33.2 g/dL (33.0-37.0); Mean Corpuscular Hgb 26.2 pg (27.0-31.0); Mean Platelet Volume 9.7 fL (7.4-10.4); Nucleated Red Blood Cells % 0 %; Platelet Count 274 10^3/uL (130-400); Red Blood Cell Count 4.81 10^6/uL (4.20-5.40); Red Cell Dist. Width 13.6 % (11.5-14.5); White Blood Cell Count 6.9 10^3/uL (4.8-10.8)
[2024-08-06 06:00] VITALS: BP 124/83
[2024-08-06 06:02] LABS: ALT (SGPT) 17 U/L (0-35); AST (SGOT) 21 U/L (14-36); Albumin 4.1 g/dl (3.5-5.0); Alkaline Phosphatase 75 U/L (38-126); Blood Urea Nitrogen 11 mg/dl (7-17); Calcium 9.2 mg/dl (8.4-10.2); Carbon Dioxide 22 mmol/L (22-30); Chloride 109 mmol/L (98-107); Estimated Creatinine Clearance 117 ml/min; Glucose 100 mg/dl (70-99); Potassium 4.2 mmol/L (3.5-5.1); Sodium 140 mmol/L (135-145); Total Bilirubin 0.4 mg/dl (0.2-1.3); Total Protein 6.9 g/dl (6.3-8.2); eGFR > 60.00
[2024-08-06 06:14] LABS: HCG, Serum Qualitative Screen Negative
[2024-08-06 07:00] VITALS: BP 126/80
== END 2024-08-06 08:10 | disposition home or self-care (01) ==
LOC: EMR 04:57
PROVIDERS: Physician Assistant; EMERGENCY PHYSICIAN Student in an Organized Health Care Education/Training Program; FAMILY PHYSICIAN Family Medicine
DX: N93.9 Abnormal uterine and vaginal bleeding, unspecified (principal); R10.2 Pelvic and perineal pain
CPT/HCPCS: 99284; 76830; 76856; 80053; 84703; 85025; 86850; 86900; 86901